=== PATIENT | female | born 1945 | race Caucasian/White ===

== ENCOUNTER 2017-12-29 00:08 | Emergency (ER) | payer BC ==
[~2017-12-29] VITALS: Ht 154.9 cm; Wt 66.7 kg
[2017-12-29 00:29] VITALS: Ht 154.9 cm; Wt 66.7 kg
[2017-12-29 01:40] VITALS: BP 145/89
[2017-12-29 02:15] LABS: UA SPECIFIC GRAVITY 1.015 (1.005-1.035); microscopic required? YES; urine erythrocyte 3+ (NEGATIVE)
== END 2017-12-29 01:04 | disposition home or self-care (01) ==
LOC: ED 00:08
PROVIDERS: Emergency Medicine
DX: N39.0 Urinary tract infection, site not specified (principal); E03.9 Hypothyroidism, unspecified